=== PATIENT | male | born 1945 | race Caucasian/White ===

== ENCOUNTER 2019-12-18 16:26 | Inpatient (IN) ==
[2019-12-19] MEDS ORDERED: D5% in Water 1,000 ML IVC PRN (18:16)
[2019-12-19] MEDS ORDERED: Dextrose Gel 15 GM/37.5 ML TUBE PO PRN ×2 (18:16)
[2019-12-19] MEDS ORDERED: *HR* Dextrose 50 % in Water (Vial) 50 ML VIAL IVP PRN (18:16)
[2019-12-19] MEDS ORDERED: Nitroglycerin 0.4 MG TAB.SUBL SL PRN (18:25)
[2019-12-19] MEDS ORDERED: Insulin DETEMIR 100 UNIT/ML per UNIT SQ ONE (21:00)
[2019-12-19] MEDS: Spironolactone 25 MG TABLET PO SCH (23:33)
[2019-12-19] MEDS: *HR* Heparin 5,000 UNIT/ML VIAL SQ SCH (23:33)
[2019-12-19] MEDS: Insulin LISPRO 300 UNITS/3 ML VIAL SQ SCH (23:34)
[2019-12-19] MEDS: Gabapentin 300 MG CAPSULE PO SCH (23:37)
[2019-12-19] MEDS: Cholecalciferol (D-3) 1,000 UNIT (25MCG) TABLET PO SCH (23:37)
[2019-12-19] MEDS: ceFAZolin 1,000 MG in Water for inj. (sterile) 10 ML IVP SCH (23:42)
[2019-12-20] MEDS ORDERED: NON-FORMULARY MEDICATION 1 EACH EACH (Cefazolin Sodium In 0.9 % Nacl [Cefazolin 2 G/100 Ml IV SCH
[2019-12-20] MEDS: ceFAZolin 1,000 MG in Water for inj. (sterile) 10 ML IVP SCH ×3 (00:01→15:18)
[2019-12-20] MEDS: *HR* Heparin 5,000 UNIT/ML VIAL SQ SCH ×2 (05:04→19:13)
[2019-12-20] MEDS ORDERED: *HR* GlipiZIDE XL (24 HR) 10 MG TABLET PO SCH (08:00)
[2019-12-20] MEDS ORDERED: NON-FORMULARY MEDICATION 1 EACH EACH (Levofloxacin 750 Mg/150 Ml 750 MG) IVPB SCH (09:00)
[2019-12-20] MEDS ORDERED: Insulin DETEMIR 100 UNIT/ML X5UNITS SQ SCH (09:00)
[2019-12-20] MEDS ORDERED: NON-FORMULARY MEDICATION 1 EACH EACH (Vit C/E/Zn/Coppr/Lutein/Zeaxan [Preservision Areds 2 PO SCH (09:00)
[2019-12-20] MEDS: Insulin LISPRO 300 UNITS/3 ML VIAL SQ SCH ×4 (09:56→23:23)
[2019-12-20] MEDS ORDERED: ceFAZolin 1,000 MG in Water for inj. (sterile) 10 ML IVP SCH ×2 (10:04→10:07)
[2019-12-20] MEDS: Aspirin Enteric Coated 81 MG Tablet PO SCH (10:12)
[2019-12-20] MEDS: Cholecalciferol (D-3) 1,000 UNIT (25MCG) TABLET PO SCH (10:12)
[2019-12-20] MEDS: Multivit/Ca/Min/Fe/FA 1 TAB TABLET PO SCH (10:12)
[2019-12-20] MEDS: levoFLOXacin 750 MG/150 ML 750 MG/150 ML BAG IVPB SCH (10:15)
[2019-12-20] MEDS: Gabapentin 300 MG CAPSULE PO SCH (11:09)
[2019-12-20] MEDS: Bumetanide 1 MG TABLET PO SCH ×2 (11:44→19:13)
[2019-12-20] MEDS: Spironolactone 25 MG TABLET PO SCH ×2 (11:44→22:21)
[2019-12-20] MEDS: CeFAZolin 2 GM/120 ML BAG IVPB SCH ×2 (17:04→23:38)
[2019-12-21] MEDS: *HR* Heparin 5,000 UNIT/ML VIAL SQ SCH ×2 (06:46→17:48)
[2019-12-21] MEDS: Cholecalciferol (D-3) 1,000 UNIT (25MCG) TABLET PO SCH (09:05)
[2019-12-21] MEDS: levoFLOXacin 750 MG/150 ML 750 MG/150 ML BAG IVPB SCH (09:05)
[2019-12-21] MEDS: Bumetanide 1 MG TABLET PO SCH ×2 (09:05→16:29)
[2019-12-21] MEDS: Spironolactone 25 MG TABLET PO SCH ×2 (09:05→20:45)
[2019-12-21] MEDS: Aspirin Enteric Coated 81 MG Tablet PO SCH (09:05)
[2019-12-21] MEDS: Multivit/Ca/Min/Fe/FA 1 TAB TABLET PO SCH (09:05)
[2019-12-21] MEDS: Insulin LISPRO 300 UNITS/3 ML VIAL SQ SCH ×4 (09:06→20:19)
[2019-12-21] MEDS: CeFAZolin 2 GM/120 ML BAG IVPB SCH ×3 (09:12→23:24)
[2019-12-22] MEDS: *HR* Heparin 5,000 UNIT/ML VIAL SQ SCH ×2 (05:34→18:01)
[2019-12-22 05:46] LABS: Basophils % 0.5 %; Eosinophils # 0.1 K/mcL (0.0-0.6); Eosinophils % 0.7 %; Hematocrit 36.9 % (37.5-50.1); Hemoglobin 11.7 g/dL (12.9-16.9); Immature Granulocytes % 0.7 % (0-4); Lymphocytes # 0.6 K/mcL (0.6-4.6); Lymphocytes % 7.6 %; Mean Corpuscular HGB Conc 31.7 g/dL (31.6-35.5); Mean Corpuscular Hemoglobin 29.3 pg (28.0-33.3); Mean Corpuscular Volume 92.3 fL (83.0-100.0); Mean Platelet Volume 9.6 fL (9.4-12.4); Monocytes # 0.7 K/mcL (0.0-1.3); Platelet Count 264 K/mcL (140-400); Red Cell Distribution Width 21.9 % (11.5-14.5); Segmented Neutrophils % 81.5 %; White Blood Count 7.4 K/mcL (4.3-11.1)
[2019-12-22 06:04] LABS: Calcium 8.1 mg/dL (8.6-10.3); Potassium 4.2 mEq/L (3.5-5.1)
[2019-12-22] MEDS ORDERED: Petrolatum, white 28.35 GM TUBE TP PRN (07:51)
[2019-12-22] MEDS: Insulin LISPRO 300 UNITS/3 ML VIAL SQ SCH ×4 (08:27→22:32)
[2019-12-22] MEDS: Bumetanide 1 MG TABLET PO SCH ×2 (08:31→18:00)
[2019-12-22] MEDS: Cholecalciferol (D-3) 1,000 UNIT (25MCG) TABLET PO SCH (08:31)
[2019-12-22] MEDS: Aspirin Enteric Coated 81 MG Tablet PO SCH (08:31)
[2019-12-22] MEDS: Multivit/Ca/Min/Fe/FA 1 TAB TABLET PO SCH (08:31)
[2019-12-22] MEDS: Spironolactone 25 MG TABLET PO SCH ×2 (08:31→22:32)
[2019-12-22] MEDS: levoFLOXacin 750 MG/150 ML 750 MG/150 ML BAG IVPB SCH (08:31)
[2019-12-22] MEDS: CeFAZolin 2 GM/120 ML BAG IVPB SCH ×2 (10:02→15:09)
[2019-12-22] MEDS ORDERED: Petrolatum, White OINT.PACK TP PRN (14:00)
[2019-12-23] MEDS: CeFAZolin 2 GM/120 ML BAG IVPB SCH ×3 (01:25→17:39)
[2019-12-23] MEDS: *HR* Heparin 5,000 UNIT/ML VIAL SQ SCH ×2 (06:35→18:34)
[2019-12-23] MEDS: Insulin LISPRO 300 UNITS/3 ML VIAL SQ SCH ×4 (09:12→21:17)
[2019-12-23] MEDS: Multivit/Ca/Min/Fe/FA 1 TAB TABLET PO SCH (10:15)
[2019-12-23] MEDS: Spironolactone 25 MG TABLET PO SCH ×2 (10:16→21:17)
[2019-12-23] MEDS: Aspirin Enteric Coated 81 MG Tablet PO SCH (10:16)
[2019-12-23] MEDS: Cholecalciferol (D-3) 1,000 UNIT (25MCG) TABLET PO SCH (10:16)
[2019-12-23] MEDS: levoFLOXacin 750 MG/150 ML 750 MG/150 ML BAG IVPB SCH (11:04)
[2019-12-23] MEDS: Bumetanide 1 MG TABLET PO SCH ×2 (11:05→18:34)
[2019-12-24] MEDS: *HR* Heparin 5,000 UNIT/ML VIAL SQ SCH ×2 (05:30→17:23)
[2019-12-24] MEDS: Insulin LISPRO 300 UNITS/3 ML VIAL SQ SCH ×4 (09:05→21:00)
[2019-12-24] MEDS: CeFAZolin 2 GM/120 ML BAG IVPB SCH ×4 (09:06→23:41)
[2019-12-24] MEDS: Aspirin Enteric Coated 81 MG Tablet PO SCH (09:12)
[2019-12-24] MEDS: Multivit/Ca/Min/Fe/FA 1 TAB TABLET PO SCH (09:13)
[2019-12-24] MEDS: Spironolactone 25 MG TABLET PO SCH ×2 (09:13→21:00)
[2019-12-24] MEDS: Cholecalciferol (D-3) 1,000 UNIT (25MCG) TABLET PO SCH (09:13)
[2019-12-24] MEDS: Bumetanide 1 MG TABLET PO SCH ×2 (09:13→17:26)
[2019-12-24] MEDS: levoFLOXacin 750 MG/150 ML 750 MG/150 ML BAG IVPB SCH (09:57)
[2019-12-24] MEDS: Acyclovir 200 MG CAPSULE PO SCH ×3 (11:19→21:00)
[2019-12-25] MEDS: *HR* Heparin 5,000 UNIT/ML VIAL SQ SCH ×2 (05:01→17:22)
[2019-12-25 05:10] LABS: Basophils % 0.5 %; Eosinophils # 0.1 K/mcL (0.0-0.6); Eosinophils % 1.7 %; Hematocrit 33.8 % (37.5-50.1); Immature Granulocytes % 0.6 % (0-4); Lymphocytes # 0.5 K/mcL (0.6-4.6); Lymphocytes % 7.4 %; Mean Corpuscular HGB Conc 32.5 g/dL (31.6-35.5); Mean Corpuscular Hemoglobin 29.6 pg (28.0-33.3); Mean Corpuscular Volume 91.1 fL (83.0-100.0); Mean Platelet Volume 9.5 fL (9.4-12.4); Monocytes # 0.6 K/mcL (0.0-1.3); Monocytes % 9.2 %; Neutrophils # 5.4 K/mcL (1.6-8.9); Platelet Count 210 K/mcL (140-400); Red Blood Count 3.71 M/mcL (4.19-5.50); Red Cell Distribution Width 21.9 % (11.5-14.5); Segmented Neutrophils % 80.6 %; White Blood Count 6.7 K/mcL (4.3-11.1)
[2019-12-25 05:26] LABS: Calcium 7.8 mg/dL (8.6-10.3); Potassium 3.4 mEq/L (3.5-5.1)
[2019-12-25] MEDS: Insulin LISPRO 300 UNITS/3 ML VIAL SQ SCH ×4 (07:49→21:53)
[2019-12-25] MEDS: levoFLOXacin 750 MG/150 ML 750 MG/150 ML BAG IVPB SCH (07:49)
[2019-12-25] MEDS: Bumetanide 1 MG TABLET PO SCH ×2 (07:50→17:17)
[2019-12-25] MEDS: Aspirin Enteric Coated 81 MG Tablet PO SCH (07:50)
[2019-12-25] MEDS: Acyclovir 200 MG CAPSULE PO SCH ×3 (07:50→21:36)
[2019-12-25] MEDS: Multivit/Ca/Min/Fe/FA 1 TAB TABLET PO SCH (07:50)
[2019-12-25] MEDS: Cholecalciferol (D-3) 1,000 UNIT (25MCG) TABLET PO SCH (07:51)
[2019-12-25] MEDS: Spironolactone 25 MG TABLET PO SCH ×2 (07:51→21:36)
[2019-12-25] MEDS: CeFAZolin 2 GM/120 ML BAG IVPB SCH ×3 (10:43→23:43)
[2019-12-25] MEDS: Melatonin 3 MG TABLET PO PRN (21:36)
[2019-12-26] MEDS: *HR* Heparin 5,000 UNIT/ML VIAL SQ SCH ×2 (04:51→17:08)
[2019-12-26] MEDS: CeFAZolin 2 GM/120 ML BAG IVPB SCH ×3 (07:46→23:32)
[2019-12-26] MEDS: Insulin LISPRO 300 UNITS/3 ML VIAL SQ SCH ×4 (07:46→21:23)
[2019-12-26] MEDS: levoFLOXacin 750 MG/150 ML 750 MG/150 ML BAG IVPB SCH (08:36)
[2019-12-26] MEDS: Acyclovir 200 MG CAPSULE PO SCH ×3 (08:50→21:11)
[2019-12-26] MEDS: Cholecalciferol (D-3) 1,000 UNIT (25MCG) TABLET PO SCH (08:51)
[2019-12-26] MEDS: Bumetanide 1 MG TABLET PO SCH ×3 (08:51→17:47)
[2019-12-26] MEDS: Multivit/Ca/Min/Fe/FA 1 TAB TABLET PO SCH (08:53)
[2019-12-26] MEDS: Aspirin Enteric Coated 81 MG Tablet PO SCH (08:54)
[2019-12-26] MEDS: Spironolactone 25 MG TABLET PO SCH ×2 (08:55→21:11)
[2019-12-26] MEDS ORDERED: Insulin DETEMIR 100 UNIT/ML per UNIT SQ ONE (21:00)
[2019-12-26] MEDS: Melatonin 3 MG TABLET PO PRN (21:11)
[2019-12-27] MEDS: *HR* Heparin 5,000 UNIT/ML VIAL SQ SCH ×2 (05:36→16:56)
[2019-12-27] MEDS: Insulin LISPRO 300 UNITS/3 ML VIAL SQ SCH ×4 (07:32→21:03)
[2019-12-27] MEDS: CeFAZolin 2 GM/120 ML BAG IVPB SCH ×3 (08:15→23:15)
[2019-12-27] MEDS: Spironolactone 25 MG TABLET PO SCH ×2 (08:33→21:02)
[2019-12-27] MEDS: Bumetanide 1 MG TABLET PO SCH ×2 (08:33→15:25)
[2019-12-27] MEDS: Cholecalciferol (D-3) 1,000 UNIT (25MCG) TABLET PO SCH (08:34)
[2019-12-27] MEDS: Aspirin Enteric Coated 81 MG Tablet PO SCH (08:34)
[2019-12-27] MEDS: Multivit/Ca/Min/Fe/FA 1 TAB TABLET PO SCH (08:34)
[2019-12-27] MEDS: Acyclovir 200 MG CAPSULE PO SCH ×3 (08:34→21:01)
[2019-12-27] MEDS: levoFLOXacin 750 MG/150 ML 750 MG/150 ML BAG IVPB SCH (09:09)
[2019-12-27] MEDS: Insulin DETEMIR 100 UNIT/ML X5UNITS SQ SCH ×2 (09:14→21:02)
[2019-12-27] MEDS: Melatonin 3 MG TABLET PO PRN (21:01)
[2019-12-28] MEDS: *HR* Heparin 5,000 UNIT/ML VIAL SQ SCH (06:19)
[2019-12-28] MEDS: CeFAZolin 2 GM/120 ML BAG IVPB SCH (07:34)
[2019-12-28] MEDS: Insulin LISPRO 300 UNITS/3 ML VIAL SQ SCH (08:29)
[2019-12-28] MEDS: Bumetanide 1 MG TABLET PO SCH (08:31)
[2019-12-28] MEDS: Spironolactone 25 MG TABLET PO SCH (08:31)
[2019-12-28] MEDS: Aspirin Enteric Coated 81 MG Tablet PO SCH (08:46)
[2019-12-28] MEDS: Multivit/Ca/Min/Fe/FA 1 TAB TABLET PO SCH (08:46)
[2019-12-28] MEDS: Insulin DETEMIR 100 UNIT/ML X5UNITS SQ SCH (08:46)
[2019-12-28] MEDS: Acyclovir 200 MG CAPSULE PO SCH (08:46)
[2019-12-28] MEDS: Cholecalciferol (D-3) 1,000 UNIT (25MCG) TABLET PO SCH (08:46)
[2019-12-28] MEDS: levoFLOXacin 750 MG/150 ML 750 MG/150 ML BAG IVPB SCH (09:22)
[2019-12-28 10:38] VITALS: BP 106/66
== END 2019-12-28 11:52 | disposition short-term general hospital (02) | DRG 949 ==
LOC: INPGRE 12-19 16:38
PROVIDERS: ADMIT Family Medicine; ATTEND Family Medicine